=== PATIENT | male | born 2000 | race African-American/Black ===

== ENCOUNTER 2019-02-10 17:03 | Emergency (ER) | payer OTHER ==
[~2019-02-10] VITALS: Ht 182.9 cm; Wt 75.0 kg
[~2019-02-10 17:03] MED LIST: RIT5 PO
[2019-02-10] MEDS ORDERED: CefTRIAXone SODIUM 1 GM/VIAL IM ONE (17:45)
[2019-02-10] MEDS ORDERED: LIDOCAINE/PF 1% 2 ML VIAL IM ONE (17:45)
[2019-02-10] MEDS ORDERED: AZITHROMYCIN 250 MG TABLET PO ONE (17:45)
[2019-02-10 18:09] VITALS: BP 123/78
== END 2019-02-10 18:12 | disposition home or self-care (01) ==
LOC: EMS 17:05
DX: N34.2 Other urethritis (principal); R03.0 Elevated blood-pressure reading, without diagnosis of hypertension
CPT/HCPCS: 96372; 99283; J0696; J3490

== ENCOUNTER 2022-12-30 19:58 | Emergency (ER) | payer OTHER ==
[~2022-12-30] VITALS: Ht 180.3 cm; Wt 71.4 kg
[2022-12-30 20:04] VITALS: BP 118/67; PULSE 72; RESP 14; TEMP 98.5
[2022-12-30 20:26] LABS: APPEARANCE,URINE CLEAR (CLEAR); BILIRUBIN,URINE NEGATIVE (NEGATIVE); GLUCOSE, URINE (UA) NEGATIVE (NEGATIVE); KETONES,URINE NEGATIVE (NEGATIVE); LEUKOCYTE ESTERASE ,URINE NEGATIVE (NEGATIVE); NITRATE,URINE NEGATIVE (NEGATIVE); OCCULT BLOOD,URINE NEGATIVE (NEGATIVE); PH,URINE 7.5 (5.0-8.0); PROTEIN,URINE TRACE mg/dL (NEGATIVE); SPECIFIC GRAVITIY, URINE 1.022 (1.003-1.030)
[2022-12-30] MEDS ORDERED: LIDOCAINE/PF 1% 2 ML VIAL IM ONE (21:00)
[2022-12-30] MEDS ORDERED: AZITHROMYCIN 500 MG TABLET PO ONE (21:00)
[2022-12-30] MEDS ORDERED: CefTRIAXone SODIUM 1 GM/VIAL IM ONE (21:00)
== END 2022-12-30 21:36 | disposition home or self-care (01) ==
LOC: EMS 19:59
DX: R30.0 Dysuria (principal); A64 Unspecified sexually transmitted disease; F12.90 Cannabis use, unspecified, uncomplicated
CPT/HCPCS: 99283; 81003; 87491; 87591; 96372; J0696; J3490; Q9967

== ENCOUNTER 2023-07-06 10:52 | Emergency (ER) | payer OTHER ==
[~2023-07-06] VITALS: Ht 184.2 cm; Wt 72.7 kg
[2023-07-06 10:57] VITALS: BP 109/71; PULSE 101; RESP 16; TEMP 97.6
[2023-07-06 11:06] LABS: COVID AG,FIA SOURCE NASAL SWAB
[2023-07-06 11:20] LABS: RAPID GROUP A STREP NEGATIVE (NEGATIVE)
[2023-07-06 11:26] LABS: INFLUENZA TYPE A NEGATIVE FOR TYPE A (NEGATIVE); INFLUENZA TYPE B NEGATIVE FOR TYPE B (NEGATIVE); SARS-COV2 (COVID) ANTIGEN,FIA Negative (Negative)
[2023-07-06] MEDS ORDERED: BENZ-227 PO (12:02)
[2023-07-06] MEDS ORDERED: AMOX500C2 PO (12:02)
== END 2023-07-06 12:09 | disposition home or self-care (01) ==
LOC: EMS 11:02
DX: J02.8 Acute pharyngitis due to other specified organisms (principal); R19.7 Diarrhea, unspecified; F12.90 Cannabis use, unspecified, uncomplicated
CPT/HCPCS: 87430; 87804; 99283

== ENCOUNTER 2023-10-26 19:57 | Emergency (ER) | payer OTHER ==
[~2023-10-26] VITALS: Ht 180.3 cm; Wt 72.7 kg
[~2023-10-26 19:57] MED LIST changes: +AMOX500C2 PO; +BENZ-227 PO; -RIT5 PO
[2023-10-26 20:21] VITALS: BP 139/80; PULSE 81; RESP 16; TEMP 99.1
[2023-10-26 22:23] LABS: INFLUENZA A-RTPCR,COMBO NEGATIVE (NEGATIVE); INFLUENZA B-RTPCR,COMBO NEGATIVE (NEGATIVE); RESPIRATORY SYNCYTIAL VRS-PCR NEGATIVE (NEGATIVE); SARS COVID19 RTPCR, COMBO NEGATIVE (NEGATIVE)
[2023-10-26] MEDS ORDERED: IBUP-1554 PO (23:17)
[2023-10-26] MEDS ORDERED: ACET-2080 PO (23:17)
[2023-10-26] MEDS ORDERED: GUAIFDM PO (23:17)
[2023-10-26] MEDS: ACETAMINOPHEN/CODEINE 300-30 MG TABLET PO ONE (23:22)
[2023-10-26] MEDS: IBUPROFEN 600 MG TABLET PO ONE (23:23)
== END 2023-10-26 23:31 | disposition home or self-care (01) ==
LOC: EMS 19:57
DX: J02.8 Acute pharyngitis due to other specified organisms (principal); F12.90 Cannabis use, unspecified, uncomplicated; Z20.822 Contact with and (suspected) exposure to COVID-19
CPT/HCPCS: 99283; 0241U; 87430; 99284

== ENCOUNTER 2024-11-13 15:54 | Emergency (ER) | payer OTHER ==
[~2024-11-13] VITALS: Ht 180.3 cm; Wt 91.0 kg
[~2024-11-13 15:54] MED LIST changes: +ACET-2080 PO; +GUAIFDM PO; +IBUP-1554 PO
[2024-11-13 15:58] VITALS: BP 130/87; PULSE 108; RESP 16; TEMP 98.1; O2SAT 95
[2024-11-13] MEDS ORDERED: DiphenhydrAMINE HCL 50 MG/ML VIAL ONE (16:33)
[2024-11-13] MEDS ORDERED: LORazepam 2 MG/ML VIAL ONE (16:33)
[2024-11-13] MEDS ORDERED: HALOPERIDOL LACTATE 5 MG/ML VIAL ONE (16:33)
[2024-11-13] MEDS ORDERED: LORazepam 2 MG/ML VIAL IM ONE (16:45)
[2024-11-13] MEDS ORDERED: DiphenhydrAMINE HCL 50 MG/ML VIAL IM ONE (16:45)
[2024-11-13] MEDS ORDERED: HALOPERIDOL LACTATE 5 MG/ML VIAL IM ONE (16:45)
== END 2024-11-13 19:35 | disposition home or self-care (01) ==
LOC: EMS 16:00
DX: F15.10 Other stimulant abuse, uncomplicated (principal); F31.9 Bipolar disorder, unspecified; F12.90 Cannabis use, unspecified, uncomplicated
CPT/HCPCS: 99285; J1200; J1630; J2060